=== PATIENT | female | born 2000 | race Caucasian/White ===

== ENCOUNTER 2023-04-24 15:33 | Outpatient (AMB) | payer OTHER, SELFPAY ==
--- NOTE | 2023-04-24 15:46 | MHC.OFFWIV ---
Intake Vital Signs 04/24/23 15:47 Height 5 ft 3 in Weight 187 lb BMI 33.1 BP 116/78 Blood Pressure Location Rt brachial Position Sitting Pulse 68 Pulse Source Pulse Oximeter Temp 99.1 F Temp Source Oral Pulse Oximetry (%) 96 Oxygen Delivery Method Room Air Intake Visit Reasons: EP Sore throat Intake Note: Pt is here for a sore throat that started last night but pt says she did not see any patches but says her throat was burning feeling and pt had her tonsils out last August Allergies No Known Allergies Allergy (Verified 04/24/23 15:51) Do you need a note to return to daycare/school/sports/work: No HPI HPI Comments History of Present Illness Details This is a 22-year-old female with history of peritonsillar abscess x2 status post tonsillectomy who presented to the walk-in clinic today complaining of sore throat that started last night. Patient reports minor throat irritation but denies any exudates, throat swelling, odynophagia, or difficulty breathing. She denies any fevers or chills. Review of Systems Const All systems reviewed & are unremarkable except as noted in HPI and below Reports no additional complaints Eyes Reports no additional complaints ENT Reports no additional complaints Card Reports no additional complaints Resp Reports no additional complaints GI Reports no additional complaints Reports no additional complaints Musc Reports no additional complaints Skin/Breast Reports system reviewed and no additional complaints, except as documented Neuro Reports no additional complaints Psych Reports no additional complaints Endo Reports no additional complaints Ronnie/Lymph Reports no additional complaints Aller/Immun Reports no additional complaints Physical Exam Vital Signs: Last Vital Signs Temp 99.1 F 04/24/23 15:47 Pulse 68 04/24/23 15:47 BP 116/78 04/24/23 15:47 Pulse Ox 96 04/24/23 15:47 Oxygen Delivery Method Room Air 04/24/23 15:47 BMI result Body Mass Index 33.1 Const Other: Vital signs reviewed. Constitutional: Non-toxic appearing. No acute distress. Well-developed and well-nourished. HEENT: Normocephalic and atraumatic. Mild posterior pharyngeal erythema but no patchy exudates, no evidence of peritonsillar mass/abscess, and no evidence of peritonsillar cellulitis. Skin: Warm and dry. No rashes or lesions noted. Neck: Full and painless range of motion. No cervical lymphadenopathy. No unilateral neck swelling. Cardio: Regular rate and rhythm. No murmurs, gallops, or rubs. No lower extremity edema. No JVD. Pulmonary: No respiratory distress. No accessory muscle usage. No stridor. Gastrointestinal: Soft, nontender, and nondistended in all 4 quadrants. Musculoskeletal: Normal range of motion in joints throughout the body. No deformity or other signs of injury. Neuro: Alert and oriented x4. Cranial nerves 2-12 grossly intact. No focal deficits appreciated. Psych: Normal mood and affect. Results AMB Rapid Strep AMB Rapid Strep Negative Last Edit by Kimberley Byrne CMA on 04/24/23 16:11 Assessment & Plan Assessment & Plan (1) Acute pharyngitis: Code(s): J02.9 - Acute pharyngitis, unspecified Plan: This is a 22-year-old female presenting to the office complaining of a sore throat. On physical examination, patient has . History and physical most consistent with acute pharyngitis, likely viral. Rapid strep test is . No evidence of peritonsillar mass/abscess, peritonsillar cellulitis, or, unilateral neck swelling. Patient's vital signs are stable, physical exam is otherwise benign, and patient is overall nontoxic appearing. Recommended symptomatic management including rest, increased fluids, advil/tylenol for pain/fever, salt water gargles, and over the counter throat lozenges. Patient advised to follow up here or go to the emergency room for worsening/persistent symptoms. Patient verbalizes understanding and is in agreement the plan. Plan This is a 22-year-old female with history of peritonsillar abscess x2 status post tonsillectomy presenting to the office complaining of a sore throat. On physical examination, patient has mild posterior pharyngeal erythema but no evidence of patchy exudates, peritonsillar abscess, or peritonsillar cellulitis. History and physical most consistent with acute pharyngitis, likely viral. Rapid strep test is negative. Patient's vital signs are stable, physical exam is otherwise benign, and patient is overall nontoxic appearing. Recommended symptomatic management including rest, increased fluids, advil/tylenol for pain/fever, salt water gargles, and over the counter throat lozenges. Recommended patient have a low threshold to proceed to the emergency room given her history of peritonsillar abscess x2. She was advised to proceed directly to the emergency room if she were to develop throat swelling, difficulty breathing, fever/chills, or unilateral neck swelling. She was also educated on the signs/symptoms of strep pharyngitis including patchy exudates, fever/chills, fatigue, and cervical lymphadenopathy. Patient verbalizes understanding and is in agreement the plan. Orders: Orders AMB Rapid Strep Screen Today Z13.9 - Encounter for screening, unspecified Coding Level of Care Code Est Pt Level 3 (30776) Diagnoses Acute pharyngitis J02.9
[2023-04-24 15:47] VITALS: BP 116/78; PULSE 68; TEMP 37.3; O2SAT 96; BMI 33.1
== END 2023-04-24 16:38 | disposition home or self-care (01) ==
PROVIDERS: PCP Internal Medicine; Visit Provider Physician Assistant Medical
DX: J02.9 Acute pharyngitis, unspecified (principal)
CPT/HCPCS: 87880; 99213

== ENCOUNTER 2023-11-12 12:51 | Outpatient (AMB) | payer BC, SELFPAY ==
--- NOTE | 2023-11-12 12:54 | A.OFFPC_ITS ---
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 She has been feeling well, currently works full- time. She is up-to-date with her cervical cancer screening, done in 2020 and has an appointment to see at [facility] for her routine Pap and pelvic exam. 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 [facility] Medical History History of peritonsillar abscess Obesity (BMI 30.0-34.9) Surgical History Hx of tonsillectomy Family History Paternal Grandfather Diabetes mellitus Social History Housing: House Patient Tobacco Use Status: Never used Tobacco service: No Current occupational status: employed Current occupation: [employer] Current occupational exposures/hazards: No Cognitive needs: No Hearing needs: No Vision needs: No Female Reproductive History Menstrual Duration of menses: 3-5 days Date of last menstrual period: 11/07/23 control method: pills Questionnaire PHQ-9 Over the last 2 weeks, how often have you been bothered by any of the following problems? 1. Little interest or pleasure in doing things: not at all 2. Feeling down, depressed, or hopeless: not at all 3. Trouble falling or staying asleep, or sleeping too much: not at all 4. Feeling tired or having little energy: not at all 5. Poor appetite or overeating: not at all 6. Feeling bad about yourself - or that you are a failure or have let yourself or your family down: not at all 7. Trouble concentrating on things, such as reading the newspaper or watching television: not at all 8. Moving or speaking so slowly that other people could have noticed. Or the opposite - being so fidgety or restless that you have been moving around a lot more than usual: not at all 9. Thoughts that you would be better off or of hurting yourself in some way: not at all Total score: 0 Depression Screening Interpretation: Negative Depression Screening Done: Yes 99296 - PHQ-9 Billing: Yes Source: Developed by Drs. Partha Squires, Janeth Gonzalez, Shakeel Gasca and colleagues, with an educational amado from [employer]. Thrive Questionnaire Date Thrive assessed: 11/12/23 I am a: Patient What is your living situation today?: I have a steady place to live Within the past 12 months, did the food you bought not last and you didn't have the money to get more?: Never true Within the past 12 months, did you worry whether your food would run out before you got money to buy more?: Never true Do you have trouble paying for medicines?: No Do you have trouble getting transportation to medical appointments?: No Do you have trouble paying your heating and electricity bill?: No Do you have trouble taking care of your child, family member or friend?: No Do you have trouble with day-to-day activities such as bathing, preparing meals, shopping, managing finances, etc.?: No Are you currently unemployed and looking for a job?: No Are you interested in more education?: No Please select the resources that you would like help with: None Currently or been in a relationship where the following occur: No concerns reported THRIVE Score: 0 AUDIT C Alcohol Use Questionnaire (AUDIT-C) 1. How often do you have a drink containing alcohol?: 2-4 times a month 2. How many drinks containing alcohol do you have on a typical day when you are drinking?: 1 or 2 3. How often do you have six or more drinks on one occasion?: Never Total Score: 2 Score Reviewed/Action Taken: Yes CHARLENE-7 AMB Questionnaire CHARLENE-7 Date CHARLENE - 7 assessed: 11/12/23 Feeling nervous, anxious, or on edge: 0 = Not at all Not being able to stop or control worryin = Not at all Worrying too much about different things: 0 = Not at all Trouble relaxin = Not at all Being so restless that it is hard to sit still: 0 = Not at all Becoming easily annoyed or irritable: 0 = Not at all Feeling afraid as if something awful might happen: 0 = Not at all Total CHARLENE-7 score (0-4 normal; 5-9 mild; 10-14 moderate; 15-21 severe): 0 Source: Developed by Drs. Partha Squires, Janeth Gonzalez, Shakeel Gasca and colleagues, with an educational amado from [employer]. CHARLENE-7 Assessment Billing CHARLENE-7 Assessment Tool: CHARLENE-7 Assessment 95162 Review of Systems Const Denies body aches, Denies fatigue, Denies fever(s), Denies headache(s) and Denies weakness Eyes Denies change in vision ENT Denies dizziness, Denies headache(s), Denies nasal congestion, Denies nasal discharge and Denies sore throat Card Denies chest pain, Denies lightheadedness, Denies palpitations and Denies dyspnea Resp Denies chest congestion, Denies cough, Denies dyspnea and Denies wheezing GI Denies abdominal pain, Denies change in bowel habits and Denies heartburn Denies hematuria, Denies urinary frequency, Denies dysuria and Denies urinary urgency Musc Reports no additional complaints Skin/Breast Denies breast pain, Denies breast mass, Denies lesions and Denies rash Neuro Denies dizziness, Denies headache(s) and Denies weakness Psych Reports no additional complaints Endo Denies fatigue, Denies polydipsia, Denies polyuria and Denies palpitations Ronnie/Lymph Denies easy bruising Aller/Immun Denies seasonal rhinorrhea and Denies wheezing Physical exam (Primary Care) Vital Signs: Last Vital Signs Pulse 84 11/12/23 12:57 BP 122/80 11/12/23 12:57 Pulse Ox 98 11/12/23 12:57 Oxygen Delivery Method Room Air 11/12/23 12:57 BMI result Body Mass Index 31.8 Tobacco/Smoking Status: Tobacco use Status Tobacco use date assessed 11/12/23 11/12/23 13:04 Patient Tobacco Use Status Never used Tobacco 11/12/23 13:04 PHQ-9: PHQ-9 Score PHQ-9: Total score 0 11/12/23 13:06 Depression Screening Interpretation: Negative Thrive Assessment: Date of Thrive Assessment Date Thrive assessed 11/12/23 11/12/23 12:55 Currently or been in a relationship where the following occur: No concerns reported Const General: no acute distress and alert Orientation/consciousness: patient oriented x3 HENMT Head: Yes normocephalic and Yes atraumatic Ears: external ears normal, TM's normal bilaterally and EAC's normal General nose exam: Normal external nose present and No nasal discharge present Face and sinus: Yes face symmetric Mouth: Normal oral and palatal mucosa present, lip normal, tongue normal, oropharynx normal and moist mucous membranes Eyes General: appearance normal, both eyes and all related structures Eyelids: Yes eyelids normal Conjunctivae: conjunctivae normal Sclerae: sclerae normal Pupils: Equal, round and reactive pupils present EOM: EOMs intact bilaterally Neck Neck: Yes full ROM, Yes no lymphadenopathy and Yes supple Thyroid: Thyroid normal Chest Chest palpation & inspection: normal inspection of the chest Breast/axilla palpation: normal palpation of the breasts Resp Effort & Inspection: normal respiratory effort and able to speak in complete sentences Auscultation: clear to auscultation bilaterally Cardio Rate: regular rate Rhythm: regular rhythm Heart sounds: S1 normal heart sound present and S2 normal heart sound present GI Palpation (GI): Soft to palpation, nontender, no guarding and no masses Auscultation: normal bowel sounds General: Yes no CVA tenderness and Yes deferred (has appt already scheduled with Dr Higgins) Back/Spine/Pelvis Back: no CVA tenderness and No back tenderness Skin General skin exam: no rashes or lesions noted Neuro General: patient oriented x3, gait normal, moves all extremities, Normal light touch and pain sensation, no focal motor deficits and CN's II-XI intact bilaterally Cranial nerves: Yes Equal, round and reactive pupils present Cognition (Neuro): normal cognition Gait exam (Neuro): Normal gait present Motor exam (neuro): 5/5 motor strength present throughout Extrem General: Yes normal to inspection, Yes full ROM, Yes no joint enlargement, Yes no pedal edema and Yes normal gait Psych Appearance: grossly normal and well kempt Mental Status: mental status grossly normal Speech and movement: Normal speech and movement present Affect: normal affect Attitude: cooperative Thought process: Normal thought process present Thought content: Normal thought content present Assessment and Plan Assessment & Plan (1) Annual visit for general adult medical examination with abnormal findings: Code(s): Z00.01 - Encounter for general adult medical examination with abnormal findings Plan: Will check appropriate labs. Continue with regular dental visit every 6 months and regular eye exams, at least every 2 years. Take adequate calcium in diet and vitamin-D 3 at 2000 IU per cap once a day, in addition to weight-bearing exercises to help maintain good muscle tone and weight control. Instructed to do self-breast exam, and recommended to get yearly mammogram, starting at age 40. Up-to-date with her cervical cancer screening, has an appointment already scheduled with her new OBGYN reminded to get her yearly flu shot, recommended to get an updated COVID vaccine, up-to-date with her Tdap Orders: Orders Hemoglobin and Hematocrit Today E66.9 - Obesity, unspecified, Z00.01 - Encounter for general adult medical examination with abnormal findings, Z13.1 - Encounter for screening for diabetes mellitus, Z13.220 - Encounter for screening for lipoid disorders Lipid Panel Today E66.9 - Obesity, unspecified, Z00.01 - Encounter for general adult medical examination with abnormal findings, Z13.1 - Encounter for screening for diabetes mellitus, Z13.220 - Encounter for screening for lipoid disorders Aspartate Amino Transferase Today E66.9 - Obesity, unspecified, Z00.01 - Encounter for general adult medical examination with abnormal findings, Z13.1 - Encounter for screening for diabetes mellitus, Z13.220 - Encounter for screening for lipoid disorders Basic Metabolic Panel Fasting Today E66.9 - Obesity, unspecified, Z00.01 - Encounter for general adult medical examination with abnormal findings, Z13.1 - Encounter for screening for diabetes mellitus, Z13.220 - Encounter for screening for lipoid disorders Alanine Aminotransferase Today E66.9 - Obesity, unspecified, Z00.01 - Encounter for general adult medical examination with abnormal findings, Z13.1 - Encounter for screening for diabetes mellitus, Z13.220 - Encounter for screening for lipoid disorders Coding Level of Care Code New Pt Prev Care 18-39yr([id number] Diagnoses Annual visit for general adult medical examination with abnormal findings Z00.01 Additional Codes CHARLENE-7 Assessment Billing - CHARLENE-7 Assessment Tool: CHARLENE-7 Assessment 70627 ([id number])
[2023-11-12 12:57] VITALS: BP 122/80; PULSE 84; O2SAT 98; BMI 31.8
== END 2023-11-12 13:28 | disposition home or self-care (01) ==
PROVIDERS: PCP Internal Medicine; Visit Provider Internal Medicine
DX: Z00.00 Encounter for general adult medical examination without abnormal findings (principal)
CPT/HCPCS: 99395

== ENCOUNTER 2023-12-14 10:20 | Outpatient (REF) | payer BC, SELFPAY ==
[2023-12-14 13:38] LABS: Hematocrit 43.8 % (37.0-47.0); Hemoglobin 14.7 g/dl (12.0-16.0)
[2023-12-14 14:02] LABS: Alanine Aminotransferase 19 U/L (0-31); Anion Gap 12 (12-20); Aspartate Amino Transferase 17 U/L (5-31); Blood Urea Nitrogen 12 mg/dL (9-16); Calcium 9.3 mg/dL (8.4-10.2); Carbon Dioxide 24 mmol/L (22-29); Chloride 107 mmol/L (96-108); Cholesterol 135 mg/dL (<200); Estimated Glomerular Filt Rate > 60; Glucose Fasting 89 mg/dL (60-99); HDL Cholesterol 44 mg/dL (>40); LDL Cholesterol Calculated 77 mg/dL (<100); Potassium 4.1 mmol/L (3.3-5.1); Sodium 139 mmol/L (135-145); Triglycerides 73 mg/dL (<150)
== END 2023-12-14 10:21 | disposition home or self-care (01) ==
LOC: HO.HMGCLDS 10:20
PROVIDERS: PCP Internal Medicine; Visit Provider Internal Medicine
DX: Z00.01 Encounter for general adult medical examination with abnormal findings (principal); E66.9 Obesity, unspecified; Z13.220 Encounter for screening for lipoid disorders; Z13.1 Encounter for screening for diabetes mellitus
CPT/HCPCS: 36415; 80048; 80061; 84450; 84460; 85014; 85018

== ENCOUNTER 2024-11-29 12:50 | Outpatient (AMB) | payer OTHER, SELFPAY ==
[2024-11-29 13:04] VITALS: BP 104/68; PULSE 87; RESP 15; TEMP 37; O2SAT 96; BMI 34.2
--- NOTE | 2024-11-29 13:04 | A.OFFPC_ITS ---
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 Is last menstrual period known: Yes Last menstrual period: 10/30/24 Allergies No Known Allergies Allergy (Verified 11/29/24 13:16) Medication List - Last Reconciled 11/29/24 by Karishma Davis MD levonorgestrel-ethinyl estrad 0.1-20 mg-mcg (Vienva) 1 tab PO DAILY Tobacco use date assessed: 11/29/24 Dental Screening Dental Screen Date: 11/29/24 Did you have a dental visit in the last 12 months?: Yes Did you have a dental problem in the last 6 months where you did not have access to dental care?: No Was dental information given to patient?: Patient has dentist HPI Annual PE/inactive insurance, check with oa HPI Details 24-year-old lady here today for her phys ical exam. Currently on control pills for contraception. [facility] Medical History History of peritonsillar abscess Obesity (BMI 30.0-34.9) Surgical History Hx of tonsillectomy Family History Paternal Grandfather Diabetes mellitus Social History Housing: House Patient Tobacco Use Status: Never used Tobacco e-Cigarette/Vaping Use: Never Used service: No Current occupational status: employed Current occupation: [employer] Current occupational exposures/hazards: No Cognitive needs: No Hearing needs: No Vision needs: No Female Reproductive History Menstrual Date of last menstrual period: 10/30/24 Questionnaire PHQ-9 Over the last 2 weeks, how often have you been bothered by any of the following problems? 1. Little interest or pleasure in doing things: not at all 2. Feeling down, depressed, or hopeless: not at all 3. Trouble falling or staying asleep, or sleeping too much: not at all 4. Feeling tired or having little energy: several days 5. Poor appetite or overeating: not at all 6. Feeling bad about yourself - or that you are a failure or have let yourself or your family down: not at all 7. Trouble concentrating on things, such as reading the newspaper or watching television: not at all 8. Moving or speaking so slowly that other people could have noticed. Or the opposite - being so fidgety or restless that you have been moving around a lot more than usual: not at all 9. Thoughts that you would be better off or of hurting yourself in some way: not at all Total score: 1 Source: Developed by Drs. Partha Squires, Janeth Gonzalez, Shakeel Gasca and colleagues, with an educational amado from [employer]. Thrive Questionnaire Date Thrive assessed: 11/29/24 I am a: Patient What is your living situation today?: I have a steady place to live Within the past 12 months, did the food you bought not last and you didn't have the money to get more?: Never true Within the past 12 months, did you worry whether your food would run out before you got money to buy more?: Never true Do you have trouble paying for medicines?: No Do you have trouble getting transportation to medical appointments?: No Do you have trouble paying your heating and electricity bill?: No Do you have trouble taking care of your child, family member or friend?: No Do you have trouble with day-to-day activities such as bathing, preparing meals, shopping, managing finances, etc.?: No Are you currently unemployed and looking for a job?: No Are you interested in more education?: No Please select the resources that you would like help with: None Currently or been in a relationship where the following occur: No concerns reported THRIVE Score: 0 AUDIT C Alcohol Use Questionnaire (AUDIT-C) 1. How often do you have a drink containing alcohol?: 2-3 times a week 2. How many drinks containing alcohol do you have on a typical day when you are drinking?: 1 or 2 3. How often do you have six or more drinks on one occasion?: Never Total Score: 3 CHARLENE-7 AMB Questionnaire CHARLENE-7 Date CHARLENE - 7 assessed: 11/12/23 Feeling nervous, anxious, or on edge: 2 = More than half the days Not being able to stop or control worryin = More than half the days Worrying too much about different things: 2 = More than half the days Trouble relaxin = Several days Being so restless that it is hard to sit still: 0 = Not at all Becoming easily annoyed or irritable: 1 = Several days Feeling afraid as if something awful might happen: 0 = Not at all Total CHARLENE-7 score (0-4 normal; 5-9 mild; 10-14 moderate; 15-21 severe): 8 Source: Developed by Drs. Patrha Squires, Janeth Gonzalez, Shakeel Gasca and colleagues, with an educational amado from [employer]. Physical exam (Primary Care) Vital Signs: Last Vital Signs Temp 98.6 F 11/29/24 13:04 Pulse 87 11/29/24 13:04 Resp 15 11/29/24 13:04 BP 104/68 11/29/24 13:04 Pulse Ox 96 11/29/24 13:04 Oxygen Delivery Method Room Air 11/29/24 13:04 BMI result Body Mass Index 34.2 Tobacco/Smoking Status: Tobacco use Status Tobacco use date assessed 11/29/24 11/29/24 13:08 Patient Tobacco Use Status Never used Tobacco 11/29/24 13:08 e-Cigarette/Vaping Use Never Used 11/29/24 13:08 PHQ-9: PHQ-9 Score PHQ-9: Total score 1 11/29/24 13:37 Thrive Assessment: Date of Thrive Assessment Date Thrive assessed 11/29/24 11/29/24 13:08 Currently or been in a relationship where the following occur: No concerns reported Office Procedures Flu Questionnaire Does the patient have a severe egg allergy?: No Does the patient have severe life threatening allergies?: No Does the patient have a fever or illness today?: No Has the patient ever had Guillain-Prospect Syndrome?: No Has the patient ever had any past reaction to a flu shot?: No Immunizations Fluarix [id number] (PF) 45 mcg (15 mcg x 3)/0.5 mL IM syringe Performing Provider: Karishma Davis MD Performing Location: [facility] Administered by: Kimberley Byrne CMA on 11/29/24 14:16 Dose Route Admin Location Dispensed Lot Number Expiration Date NDC Industrial Relations Officer 0.5 mL IM Left Deltoid 0.5 mL [id number] 09/05/25 [id number] Xigen VIS Given Date VIS Provided VIS Publication Date 11/29/24 Single Vaccine 24 Eligibility Eligibility Date Funding Source Not [facility] Eligible 11/29/24 Private Coding Diagnoses Obesity (BMI 30.0-34.9) E66.9 Annual visit for general adult medical examination with abnormal findings Z00.01 Assessment & Plan Assessment & Plan (1) Obesity (BMI 30.0-34.9): Code(s): E66.9 - Obesity, unspecified Category: Medical (2) Annual visit for general adult medical examination with abnormal findings: Code(s): Z00.01 - Encounter for general adult medical examination with abnormal findings Orders: Orders Glucose Fasting Today E66.9 - Obesity, unspecified, Z00.01 - Encounter for general adult medical examination with abnormal findings, Z13.1 - Encounter for screening for diabetes mellitus Influenza [id number] Immunization Today Z23 - Encounter for immunization Vitamin D 25-OH Total Today E66.9 - Obesity, unspecified, Z00.01 - Encounter for general adult medical examination with abnormal findings, Z13.1 - Encounter for screening for diabetes mellitus Lipid Panel Today E66.9 - Obesity, unspecified, Z00.01 - Encounter for general adult medical examination with abnormal findings, Z13.1 - Encounter for screening for diabetes mellitus
--- OUTSIDE RECORDS SUMMARY | 2024-11-29 15:42 | XMS_ITS | Encounter Summary ---
Author Organization [facility] Address [address] [place] [address] Phone Care Team Providers Care Underwater Photographer Name Role Phone Unknown, Unknown Primary Care Provider Aura rucker Encounter Details Date Type Department Care Team (Late st Contact Info) Description 08/14/2022 Procedure Pass OR Admitting Dept - Virtual Department [address] [place] [id number] Social History Tobacco Use Types Packs/Day Years Used Date Smoking Tobacco: Never Smokeless Tobacco: Never Alcohol Use Standard Drinks/Week Comments Yes 2 (1 standard drink = 0.6 oz pur e alcohol) Education Answer Date Recorded Are you interested in more education? Not on destinee e 07/05/2022 Are you concerned about learning? Not on file 07/05/2022 No 07/05/2022 No 07/05/2022 Digital Access Answer Date Recorded No 07/30/2022 No 07/30/2022 Reliable internet access at home? Not on file 07/30/2022 Device with a working camera? Not on file Comments No Sex and Gender Information Value Date Recorded Sex Assigned at Not on file Legal Sex Female 10:15 AM EDT Gender Identity Not on file Sexual Orientation Not on file documented as of this encounter Plan of Treatment Not on file documented as of this encounter Visit Diagnoses Not on filedocumented in this encounter Care Teams Underwater Photographer Relationship Specialty Start Date End Date Unknown, Unknown, PCP - General 06/11/22 documented as of this encounter Additional Source Comments The information contained in this document represents components of the legal health record. It is not the complete legal health record.[facility]
--- OUTSIDE RECORDS SUMMARY | 2024-11-29 15:42 | XMS_ITS | Encounter Summary ---
Author Organization [facility] Address [address] [place] [address] Phone Care Team Providers Care Software Consultant Name Role Phone Alexandra Aldrich BLENDER / COOK Primary Care Provider [phone] Reason for Visit * Reason Comments Med Change Request Encounter Details Date Type Department Care Team (Late st Contact Info) Description 04/25/2022 Refill [facility] [address] [place] [address] Alexandra Aldrich, MICHELLE [facility] [place] [address] Peritonsillar abscess Social History Tobacco Use Types Packs/Day Years Used Date Smoking Tobacco: Never Smokeless Tobacco: Never Comments:Never Smoker Alcohol Use Standard Drinks/Week Comments Never 0 (1 standard drink = 0.6 oz pur e alcohol) Hunger/Food Answer Date Recorded In the last 12 months, did y ou or your family ever eat less than you felt you should because there wasn't enough money for food? No 10/20/2021 Stable Housing Answer Date Recorded Are you worried that in the next 2 months you may not have stable housing? No 10/20/2021 Transportation Concerns Answer Date Rec orded In the last 12 months, have you or your family ever had to go without healthcare because you didn't have a way to get there? No 10/20/2021 Hazards in Home Answer Date Recorded Think about the place you li ve. Do you have problems with any of the following? Pests (mice or roaches), mold, no/not working smoke detectors, water leaks, no window guards. No 2021 Financing Utilities Answer Date Recorde d In the last 12 months, has t he electric, gas, oil, or water company threatened to shut off your services in your home? No 10/20/2021 Safety at Home Answer Date Recorded Are you or your family worried about feeling saf e in your home? No 10/20/2021 Outside Support Answer Date Recorded Do you feel that you need mo re support from other people or programs to help you care for yourself or your family? No 10/20/2021 Understanding Health Concerns Answer Da te Recorded Do you need help understandi ng your or your child's healthcare needs (diagnosis, medications, plan, etc.)? No 10/20/2021 Financing Health Concerns Answer Date R ecorded In the last 12 months, was t here a time when your child needed to see a doctor or get medications or supplies but could not because of cost? No 10/20/2021 Missing School or Work Answer Date Kit rded Did you or your child miss s chool or work because of a health problem that could have been avoided? No 10/20/2021 Comments No Sex and Gender Information Value Date Recorded Sex Assigned at Female 10/28/2022 11:28 AM EDT Legal Sex Female 6:43 PM EDT Gender Identity Female 10/15/2020 9:42 AM EDT Sexual Orientation Straight 10/28/2022 11 :28 AM EDT documented as of this encounter Miscellaneous Notes * Telephone Encounter - Floridalma Ruby MA - 04/25/2022 2:03 PM EST Alexandra Norris is on back order documented in this encounter Plan of Treatment Not on file documented as of this encounter Visit Diagnoses Diagnosis Peritonsillar abscess documented in this encounter Care Teams Software Consultant Relationship Specialty Start Date End Date Alexandra Aldrich NP [facility] [place] [address] PCP - General Pediatrics 08/26/22 documented as of this encounter
--- OUTSIDE RECORDS SUMMARY | 2024-11-29 15:42 | XMS_ITS | Clinical Summary ---
Author Organization [facility] Address [address] [place] [address] Phone Care Team Providers Care Wool Washer Name Role Phone Unknown, Unknown Primary Care Provider Aura lable Allergies No known active allergies Medications levonorgestrel-e thinyl estradiol (ESTELLA RAMAN L ESSINA) 0.1-0.02 mg per tablet Take 1 tablet by mouth daily. Active Social History Tobacco Use Types Packs/Day Years Used Date Smoking Tobacco: Never Smokeless Tobacco: Never Tobacco Cessation:Counseling Given: Not Answered Alcohol Use Standard Drinks/Week Comments Yes 2 [...] on file Sexual Orientation Not on file Last Filed Vital Signs Vital Sign Reading Time Taken Comments Blood Pressure 112/67 08/14/2022 12:15 PM EDT Pulse 65 08/14/2022 12:15 PM EDT Temperature 36.5 C (97.7 F) 08/14/2022 12:15 PM EDT Respiratory Rate 16 08/14/2022 12:15 PM EDT Oxygen Saturation 98% 08/14/2022 12:15 PM EDT Inhaled Oxygen Concentration - - Weight 72.6 kg (160 lb) 08/07/2022 3:14 PM EDT Height 162.6 cm (5' 4 ) 08/07/2022 3:14 PM EDT Body Mass Index 27.46 08/07/2022 3:14 PM EDT Plan of Treatment Health Maintenance Due Date Last Done Comments DEPRESSION SCREENING 2011 SMOKING Hx and SMOKELESS TOBACCO SCREENING 09/24/2012 HEPATITIS C SCREENING 09/24/2017 HIV ONE-TIME SCREENING (18-65 YEARS) 09/24/2017 PAP SMEAR 09/24/2020 INFLUENZA VACCINE (#1) 2024 01/20/2022, 2019 COVID-19 VACCINE (2 - 2024- season) 2024 03/16/2022 Adult Td,Tdap Booster 10/18/2030 10/18/2020, 011 HIB VACCINES Completed 12/29/2000, 03/10, 01/27/2000, Additional history exists PNEUMOCOCCAL VACCINES (0-49 years) Aged Out 12/29/2000, 03/31/2000, 01/27/2000, Additional history exists No longer eligible based on patient's age to complete this topic HPV VACCINES Completed 03/18/2012, 11/07, 09/15/2011 HEPATITIS A VACCINES Completed 04/05/2015, 10/03/19 15 MENINGOCOCCAL VACCINES (ACWY) Completed 10/22/2015, 10/24/2010 MENINGOCOCCAL VACCINES (B) Aged Out N o longer eligible based on patient's age to complete this topic Medical Devices Not on file Insurance KAYLYN PPO CIGNA PPO CIGNA PPO CIGNA PPO CIGNA PPO CIGNA PPO Care Teams Wool Washer Relationship Specialty Start Date End Date Unknown, Unknown, PCP - General 06/11/22 Additional Source Comments The information contained in this document represents components of the legal health record. It is not the complete legal health record.[facility]
--- OUTSIDE RECORDS SUMMARY | 2024-11-29 15:42 | XMS_ITS | Encounter Summary ---
Author Organization [facility] Address [address] [place] [phone] Phone Care Team Providers Care Career Guidance Counselor Name Role Phone Alexandra Aldrich NP Primary Care Provider [phone] Reason for Visit * Reason Comments Med Refill Encounter Details Date Type Department Care Team (Late st Contact Info) Description 12/20/2018 Refill [facility] [address] [place] [address] Hannah Shepherd MD [address] [place] [id number] Encounter for surveillance of contraceptive pills Social History Tobacco Use Types Packs/Day Years Used Date Smoking Tobacco: Never Smokeless Tobacco: Never Comments:Never Smoker Alcohol Use Standard Drinks/Week Comments Never 0 (1 standard drink = 0.6 oz pur e alcohol) Hunger/Food Answer Date Recorded No 10/07/2018 Stable Housing Answer Date Recorded 0 10/07/2018 Transportation Concerns Answer Date Rec orded No 10/07/2018 Hazards in Home Answer Date Recorded No 10/07/2018 Financing Utilities Answer Date Recorde d No 10/07/2018 Safety at Home Answer Date Recorded No 10/07/2018 Outside Support Answer Date Recorded No 10/07/2018 Understanding Health Concerns Answer Da te Recorded No 10/07/2018 Financing Health Concerns Answer Date R ecorded No 10/07/2018 Missing School or Work Answer Date Kit rded No 10/07/2018 Comments Unknown Sex and Gender Information Value Date Recorded Sex Assigned at Female 10/28/2022 11:28 AM EDT Legal Sex Female 6:43 PM EDT Gender Identity Female 10/15/2020 9:42 AM EDT Sexual Orientation Straight 10/28/2022 11 :28 AM EDT documented as of this encounter Miscellaneous Notes * Telephone Encounter - Iqra Givens LPN - 12/20/2018 8:28 AM EDT Refill sent 1 week ago, too early to refill documented in this encounter Plan of Treatment Not on file documented as of this encounter Visit Diagnoses Diagnosis Encounter for surveillance of contraceptive pills documented in this encounter Care Teams Career Guidance Counselor Relationship Specialty Start Date End Date Alexandra Aldrich NP [address] [place] [address] PCP - General Pediatrics 08/26/22 documented as of this encounter
--- OUTSIDE RECORDS SUMMARY | 2024-11-29 15:42 | XMS_ITS | Encounter Summary ---
Author Organization [facility] Address [address] [place] [address] Phone Care Team Providers Care Line Operator Name Role Phone Alexandra Aldrich STUDENT DEVELOPMENT ADVISOR Primary Care Provider [phone] Encounter Details Date Type Department Care Team (Late st Contact Info) Description 10/24/2010 Conversion Encounter [facility] [address] [place] [address] [place] [id number] Social History Tobacco Use Types Packs/Day Years Used Date Smoking Tobacco: Never Assessed Comments Unknown Sex and Gender Information Value Date Recorded Sex Assigned at Female 10/28/2022 11:28 AM EDT Legal Sex Female 6:43 PM EDT Gender Identity Female 10/15/2020 9:42 AM EDT Sexual Orientation Straight 10/28/2022 11 :28 AM EDT documented as of this encounter Plan of Treatment Not on file documented as of this encounter Visit Diagnoses Not on filedocumented in this encounter Care Teams Line Operator Relationship Specialty Start Date End Date Alexandra Aldrich NP [address] [place] [address] [place] [id number] PCP - General Pediatrics 08/26/22 documented as of this encounter
--- OUTSIDE RECORDS SUMMARY | 2024-11-29 15:42 | XMS_ITS | Clinical Summary ---
Author Organization [facility] Address [address] [place] [address] Phone Care Team Providers Care Detasseler Name Role Phone Alexandra Aldrich NP Primary Care Provider [phone] Allergies No known active allergies Medications ibuprofen 200 MG capsuleIndications :Cough, unspecified type Take 1 capsule (200 mg total) by mouth every 6 (six) hours as needed for pain or fever (For fever or pain). 30 capsule 3 3 Active diphenhydrAMINE 12.5 MG/5ML elixir 3 Active Vienva 0.1-20 MG-MCG per tabletIndications: Encounter for surveillance of contraceptive pills TAKE 1 TABLET BY MOUTH EVERY DAY 84 tablet 1 3 Active Active Problems Problem Noted Date Diagnosed Date Peritonsillar abscess 04/01/2022 Assessment & Plan (04/25/2022 12:26 PM EST): High suspicion for recurrent peritonsillar abscess. Case discussed with Dr. Paige. Will begin on Augmentin. She will follow up on Thursday. She is aware if there is a worsening of symptoms, she should call the office to be seen tomorrow. Discussed red flags that she should seek emergent care for. Will refer to ENT for recurrence. Assessment & Plan (04/01/2022 4:36 PM EST): Exam consistent with peritonsillar abscess. Red flags noted are hot potato voice and drooling. Patient instructed to go to [facility] ED. Expect called. Follow up upon discharge. Other acne 10/06/2016 Overview (10/06/2017): Acne (706.1) Onset: 10/06/2016 Added by: Hannah Shepherd Assessment & Plan (10/06/2017 2:29 PM EDT): Stable. Counseling done. Acne Plan No squeezing or picking. Avoid touching acne. Keep phone clean, change pillowcases and towels regularly, keep hair clean and off the face. Wash with mild soap (Dove, Cetaphil) or mild acne cleanser twice a day, using lukewarm water. Moisturize as needed with non-greasy (non comedogenic) unscented lotion or cream. Dry thoroughly before applying medicated creams or gels. Allow 6-8 weeks to start seeing improvement with medicated topical treatment Call if not improving in next 2 months Immunizations Immunization Administration Dates Next Due DTaP 5 10/18/2004, 2,03/31/2000,01/26,1999 HPV, Quadrivalent 03/18/2012,11/17/2011,09/15/19 12 Hep A, ped/adol 04/05/2015,10/02/2014 Hep B, ped/adol 12/29/2000,03/31/2000,1999 Hib (PRP-T) 12/29/2000, 1,01/27/2000,11/25 IPV 10/18/2004, 2,01/27/2000,11/25 Influenza, injectable, MDCK, preservative free, quadrivalent 12/14/2019 MMR 10/18/2004,10/05/2000 Meningococcal Conj (Menactra) MCV4P 10/22/2015,0 10/24/2010 Pneumococcal Conjugate 12/29/2000,2000,01/27/2000,11/25 Tdap 10/18/2020,10/24/2010 Varicella 10/24/2010,10/05/2000 Family History Medical History Relation Name Comments No Known Problems Brotheugene Magana No Known Problems Father Delgado No Known Problems Mother Nathalia Relation Name Status Comments Brotheugene Magana Alive Father Delgado Alive Mother Nathalia Alive Social History Tobacco Use Types Packs/Day Years [...] there wasn't enough money for food? No 10/21/2022 Stable Housing Answer Date Recorded Are you worried that in the next 2 months you may not have stable housing? No 10/21/2022 Transportation Concerns Answer Date Rec orded In the last 12 months, have you or your family ever had to go without healthcare because you didn't have a way to get there? No 10/21/2022 Hazards in Home Answer Date Recorded Think about the place you li ve. Do you have problems with any of the following? Pests (mice or roaches), mold, no/not working smoke detectors, water leaks, no window guards. No 2022 Financing Utilities Answer Date Recorde d In the last 12 months, has t he electric, gas, oil, or water company threatened to shut off your services in your home? No 10/21/2022 Safety at Home Answer Date Recorded Are you or your family worried about feeling saf e in your home? No 10/21/2022 Outside Support Answer Date Recorded Do you feel that you need mo re support from other people or programs to help you care for yourself or your family? No 10/21/2022 Understanding Health Concerns Answer Da te Recorded Do you need help understandi ng your or your child's healthcare needs (diagnosis, medications, plan, etc.)? No 10/21/2022 Financing Health Concerns Answer Date R ecorded In the last 12 months, was t here a time when your child needed to see a doctor or get medications or supplies but could not because of cost? No 10/21/2022 Missing School or Work Answer Date Kit rded Did you or your child miss s chool or work because of a health problem that could have been avoided? No 10/21/2022 Comments No Sex and Gender Information Value Date Recorded Sex Assigned at Female 10/28/2022 11:28 AM EDT Legal Sex Female 6:43 PM EDT Gender Identity Female 10/15/2020 9:42 AM EDT Sexual Orientation Straight 10/28/2022 11 :28 AM EDT Last Filed Vital Signs Vital Sign Reading Time Taken Comments Blood Pressure 118/78 10/28/2022 10:57 AM EDT Pulse 116 10/28/2022 10:57 AM EDT Temperature 36.6 C (97.8 F) 10/28/2022 10:57 AM EDT Respiratory Rate - - Oxygen Saturation - - Inhaled Oxygen Concentration - - Weight 79.7 kg (175 lb 12.8 oz) 023 10:57 AM EDT Height 163.2 cm (5' 4.25 ) 10/28/2022 1 0:57 AM EDT Body Mass Index 29.94 10/28/2022 10:57 AM EDT Plan of Treatment Health Maintenance Due Date Last Done Comments Influenza Vaccines (#1) 2024 12/02/19, 01/20/2022, 12/14/2019 COVID-19 Vaccine ( season) 2024 DTaP,Tdap,and Td Vaccines (8 - Td or Tdap) 10/18/2030 10/18/2020, 10/24/2010, 10/18/2004, Additional history exists HIB Vaccines Completed 12/29/2000, 03/10, 01/27/2000, Additional history exists Hepatitis B Vaccines Completed 12/29/2000, 03/31/2000, 1999 Pneumococcal Vaccine Completed 12/29/2000, 03/31/2000, 01/27/2000, Additional history exists IPV Vaccines Completed 10/18/2004, 03/10, 01/27/2000, Additional history exists MMR Vaccines Completed 10/18/2004, 10/05/2000 Varicella Vaccines Completed 10/24/2010, 10/05/2000 HPV Vaccines Completed 03/18/2012, 11/07, 09/15/2011 Hepatitis A Vaccines Completed 04/05/2015, 10/03/19 15 Meningococcal Vaccine Completed 10/22/2015, 011 Men B Vaccine Aged Out No longer elig john based on patient's age to complete this topic Procedures * Due to [place] [employer] law, this organization might not be sharing sensitive test results. Procedure Name Priority Date/Time Associated Diagnosis Comments CHLAMYDIA GC AMP PROBE Routine 10/28/2022 11:22 AM EDT Encounter for screening examination for sexually transmitted disease from Last 3 Months or Most Recently Relevant to Health Maintenance Results * Due to [place] law, this organization might not be sharing sensitive test results. * Chlamydia and Gonorrhoea, Amplified (Vagina) (10/28/2022 11:22 AM EDT) Chlamydia Trachomatis, Amplified NEGATIVE (NEG) [facility] Comment: No Chlamydia Trachomatis RNA detected in this patient's sample (REFERENCE RANGE/NORMAL VALUE: NOT DETECTED) Note: This test uses bench loom weaver- mediated amplification method to detect rRNA from C. Trachomatis N.GONORRHOEAE AMP PROBE NEGATIVE (NEG) [facility] Comment: No Neisseria Gonorrhoeae RNA detected in this patient's sample (REFERENCE RANGE/NORMAL VALUE: NOT DETECTED) NOTE: This test uses bench loom weaver-mediated amplification method to detect rRNA from N.Gonorrhoeae. A negative result does not preclude infection. In the case of a negative urine result, testing of an endocervical(female) or urethral (male) specimen is recommended if there is high clinical suspicion of infection. Due to very high sensitivity of Nucleic Acid Amplification Test, false positive results may occur. Therefore, specimen handling is extremely important. In patients in whom the disease is unlikely, additional sample for testing should be considered after an initial positive result. The performance characteristics of this test have not been evaluated in children. The Aptima Combo2 assay is not intended for the evaluation of suspected sexual abuse or for other medico-legal indications. The ordering provider should assess if the patient had consensual sex without risk of sexual abuse. Consult the [facility] if needed. Contact phone number . Therapeutic failure or success cannot be determined with the Aptima Combo2 assay since nucleic acid may persist following appropriate antimicrobial therapy. The Centers for Disease Control and Prevention (CDC) recommends confirmatory retesting using culture or a different nucleic acid amplification test when positive results occur, if indicated. CHLAM/GC AMP PROBE SPEC TYPE CERVIX [facility] Comment: Testing performed or reported by [facility], a Service of [facility], [facility] [place] [id number] Jose Lombardo MD, Portrait Photographer [facility]# [id number] Swab (Vagina) 10/28/2022 11: 22 AM EDT 10/28/2022 5:02 PM EDT Renetta Mahajan NP LAB MICROBIOLOGY - GENERAL O RDERABLES Final Result [facility] from Last 3 Months or Most Recently Relevant to Health Maintenance Insurance [employer] EPO OPEN ACCESS Care Teams Detasseler Relationship Specialty Start Date End Date Alexandra Aldrich NP [address] [place] [address] [place] [address] PCP - General Pediatrics 08/26/22
--- OUTSIDE RECORDS SUMMARY | 2024-11-29 15:42 | XMS_ITS | Encounter Summary ---
Author Organization [facility] Address [address] [place] [address] Phone Care Team Providers Care Stopper Maker Name Role Phone Alexandra Aldrich TESTBOARD OPERATOR Primary Care Provider [phone] Reason for Visit * Reason Onset Date Comments Please deny 11/05/2021 Encounter Details Date Type Department Care Team (Late st Contact Info) Description 11/05/2021 Refill [facility] [address] [facility] [place] [address] Sandra Machado, MICHELLE [address] [facility] [place] [address] Encounter for surveillance of contraceptive pills Social [...] encounter Miscellaneous Notes * Telephone Encounter - Tiera Dow MA - 11/06/2021 8:32 AM EDT Please deny. Alternative med sent yesterday and Rosalinda discontinued. For some reason this didn't come out of requests. * Telephone Encounter - Tiera oDw MA - 11/05/2021 3:38 PM EDT Per pharmacy Rosalinda is on back order. Please send alternative. documented in this encounter Plan of Treatment Not on file documented as of this encounter Visit Diagnoses Diagnosis Encounter for surveillance of contraceptive pills documented in this encounter Care Teams Stopper Maker Relationship Specialty Start Date End Date Alexandra Aldrich NP [address] [facility] [place] [address] PCP - General Pediatrics 08/26/22 documented as of this encounter
== END 2024-11-29 13:43 | disposition home or self-care (01) ==
LOC: HO.HMCC 12:51
PROVIDERS: PCP Internal Medicine; Visit Provider Internal Medicine
DX: Z23 Encounter for immunization (principal)

== ENCOUNTER → 2024-11-29 12:50 | Outpatient (BNVA) | payer OTHER, SELFPAY | PROVIDERS: PCP Internal Medicine; Visit Provider Internal Medicine | DX: Z00.01 Encounter for general adult medical examination with abnormal findings (principal); Z23 Encounter for immunization; E66.9 Obesity, unspecified; Z68.34 Body mass index [BMI] 34.0-34.9, adult | CPT/HCPCS: 90471; 90656; 96127 ==

== ENCOUNTER 2024-12-13 10:24 | Outpatient (REF) | payer OTHER, SELFPAY ==
--- OUTSIDE RECORDS SUMMARY | 2024-12-13 12:29 | XMS_ITS | Encounter Summary ---
Author Organization [facility] Address [address] [place] [address] Phone Care Team Providers Care Creative Coordinator Name Role Phone Alexandra Aldrich FIRM ADMINISTRATOR Primary Care Provider [phone] Reason for Visit * Reason Comments Med Change Request Encounter Details Date Type Department Care Team (Late st Contact Info) Description 04/25/2022 Refill [facility] [address] [facility] [place] [address] Alexandra Aldrich, MICHELLE [facility] [facility] [place] [address] Peritonsillar abscess Social History Tobacco Use Types [...] abscess documented in this encounter Care Teams Creative Coordinator Relationship Specialty Start Date End Date Alexandra Aldrich NP [facility] [facility] [place] [address] PCP - General Pediatrics 08/26/22 documented as of this encounter
--- OUTSIDE RECORDS SUMMARY | 2024-12-13 12:29 | XMS_ITS | Encounter Summary ---
Author Organization [facility] Address [address] [place] [address] Phone Care Team Providers Care Account Receivable Clerk Name Role Phone Alexandra Aldrich INSPECTOR ROUGH CASTINGS Primary Care Provider [phone] Reason for Visit * Reason Onset Date Comments Please deny 11/05/2021 Encounter Details Date Type Department Care Team (Late st Contact Info) Description 11/05/2021 Refill [facility] [address] [facility] [place] [address] Sandra Machado, MICHELLE [address] [facility] [place] [address] Encounter for surveillance of contraceptive pills Social [...] of requests. * Telephone Encounter - Tiera Dow MA - 11/05/2021 3:38 PM EDT Per pharmacy Rosalinda is on back order. Please send alternative. documented in this encounter Plan of Treatment Not on file documented as of this encounter Visit Diagnoses Diagnosis Encounter for surveillance of contraceptive pills documented in this encounter Care Teams Account Receivable Clerk Relationship Specialty Start Date End Date Alexandra Aldrich NP [address] [place] [facility] [place] [address] PCP - General Pediatrics 08/26/22 documented as of this encounter
--- OUTSIDE RECORDS SUMMARY | 2024-12-13 12:29 | XMS_ITS | Clinical Summary ---
Author Organization [facility] Address [address] [place] [address] Phone Care Team Providers Care Chemist Biological Name Role Phone Unknown, Unknown Primary Care [...] PPO CIGNA PPO CIGNA PPO Care Teams Chemist Biological Relationship Specialty Start Date End Date Unknown, Unknown, PCP - General 06/11/22 Additional Source Comments The information contained in this document represents components of the legal health record. It is not the complete legal health record.[facility]
--- OUTSIDE RECORDS SUMMARY | 2024-12-13 12:29 | XMS_ITS | Clinical Summary ---
Author Organization [facility] Address [address] [place] [address] Phone Care Team Providers Care Trim Machine Operator Name Role Phone Alexandra Aldrich NP Primary Care Provider Allergies No known active allergies Medications ibuprofen [...] and drooling. Patient instructed to go to [facility] ED. Expect called. Follow up upon discharge. [...] complete this topic Procedures * Due to [place] [employer] law, this organization might not be sharing sensitive test results. Procedure Name Priority Date/Time Associated Diagnosis Comments CHLAMYDIA GC AMP PROBE Routine 10/28/2022 11:22 AM EDT Encounter for screening examination for sexually transmitted disease from Last 3 Months or Most Recently Relevant to Health Maintenance Results * Due to [place] [employer] law, this organization might not be sharing sensitive test results. * Chlamydia and Gonorrhoea, Amplified (Vagina) (10/28/2022 11:22 AM EDT) Chlamydia Trachomatis, Amplified NEGATIVE (NEG) [facility] Comment: No Chlamydia Trachomatis RNA detected in this patient's sample (REFERENCE RANGE/NORMAL VALUE: NOT DETECTED) Note: This test uses rehab nurse- mediated amplification method to detect rRNA from C. Trachomatis N.GONORRHOEAE AMP PROBE NEGATIVE (NEG) [facility] Comment: No Neisseria Gonorrhoeae RNA detected in this patient's sample (REFERENCE RANGE/NORMAL VALUE: NOT DETECTED) NOTE: This test uses rehab nurse-mediated amplification method to detect rRNA from N.Gonorrhoeae. [...] without risk of sexual abuse. Consult the [facility] if needed. [...] indicated. CHLAM/GC AMP PROBE SPEC TYPE CERVIX [facility] Comment: Testing performed or reported by [facility], a Service of [facility], [facility] [place] [address] Jose Lombardo MD, Acrylic Fabricator [facility]# [id number] Swab (Vagina) 10/28/2022 11: 22 AM EDT 10/28/2022 5:02 PM EDT Renetta Mahajan NP LAB MICROBIOLOGY - GENERAL O RDERABLES Final Result [facility] from Last 3 Months or Most Recently Relevant to Health Maintenance Insurance [employer] EPO OPEN ACCESS Care Teams Trim Machine Operator Relationship Specialty Start Date End Date Alexandra Aldrich NP [address] [place] [address] [place] [address] PCP - General Pediatrics 08/26/22
--- OUTSIDE RECORDS SUMMARY | 2024-12-13 12:29 | XMS_ITS | Encounter Summary ---
Author Organization [facility] Address [address] [place] [address] Phone Care Team Providers Care Analyst Business Analysis Name Role Phone Alexandra Aldrich HOTEL OR MOTEL RECEPTIONIST Primary Care Provider [phone] Encounter Details Date Type Department Care Team (Late st Contact Info) Description 10/24/2010 Conversion Encounter [facility] [address] [place] [address] [place] [address] Social History Tobacco Use Types Packs/Day Years [...] on filedocumented in this encounter Care Teams Analyst Business Analysis Relationship Specialty Start Date End Date Alexandra Aldrich NP [address] [place] [address] [place] [address] PCP - General Pediatrics 08/26/22 documented as of this encounter
--- OUTSIDE RECORDS SUMMARY | 2024-12-13 12:29 | XMS_ITS | Encounter Summary ---
Author Organization [facility] Address [address] [place] [address] Phone Care Team Providers Care Dining Service Supervisor Name Role Phone Alexandra Aldrich NP Primary Care Provider [phone] Reason for Visit * Reason Comments Med Refill Encounter Details Date Type Department Care Team (Late st Contact Info) Description 12/20/2018 Refill [facility] [address] [facility] [place] [address] Hannah Shepherd MD [address] [place] [address] Encounter for surveillance of contraceptive pills Social [...] pills documented in this encounter Care Teams Dining Service Supervisor Relationship Specialty Start Date End Date Alexandra Aldrich NP [address] [facility] [place] [address] PCP - General Pediatrics 08/26/22 documented as of this encounter
--- OUTSIDE RECORDS SUMMARY | 2024-12-13 12:29 | XMS_ITS | Encounter Summary ---
Author Organization [facility] Address [address] [place] [address] Phone Care Team Providers Care Software Development Leader Name Role Phone Unknown, Unknown Primary Care Provider Aura ruckre Encounter Details Date Type Department Care Team (Late st Contact Info) Description 08/14/2022 Procedure Pass [place] Admitting Dept - Virtual Department [address] [place] [address] Social History Tobacco Use Types Packs/Day Years [...] on filedocumented in this encounter Care Teams Software Development Leader Relationship Specialty Start Date End Date Unknown, Unknown, PCP - General 06/11/22 documented as of this encounter Additional Source Comments The information contained in this document represents components of the legal health record. It is not the complete legal health record.[facility]
[2024-12-13 14:15] LABS: Cholesterol 129 mg/dL (<200); HDL Cholesterol 37 mg/dL (>40); Triglycerides 60 mg/dL (<150)
== END 2024-12-13 10:25 | disposition home or self-care (01) ==
LOC: HO.HMGCLDS 10:24
PROVIDERS: PCP Internal Medicine; Visit Provider Internal Medicine
DX: Z00.01 Encounter for general adult medical examination with abnormal findings (principal); E66.9 Obesity, unspecified; Z13.1 Encounter for screening for diabetes mellitus
CPT/HCPCS: 36415; 80061; 82306; 82947